=== PATIENT | female | born 1960 | race African-American/Black ===

== ENCOUNTER 2022-12-10 23:15 | Inpatient (IN) | payer MEDICAID ==
[~2022-12-10] VITALS: Ht 167.6 cm; Wt 48.8 kg
[~2022-12-10 23:15] MED LIST: ALEN70TA79 PO; AMLO10TA80 PO; ATOR40TA70 PO; CLIN-194 MT; LISI20TA31 PO; SULF1TAB48 MT
[2022-12-10 23:18] VITALS: O2SAT 99
[2022-12-10] MEDS ORDERED: ONDANSETRON HCL 4MG/2ML INJ IV STA (23:18)
[2022-12-10] MEDS ORDERED: SODIUM CHLORIDE 0.9% 500 ML IV ONE (23:30)
[2022-12-10] MEDS ORDERED: ACETAMINOPHEN 325MG TABLET PO ONE (23:30)
[2022-12-10 23:38] LABS: BASOPHILS % 0.2 % (0.0-2.0); EOSINOPHILS % 1.2 % (0.0-5.0); HEMATOCRIT. 35.3 % (36.0-48.0); HEMOGLOBIN. 12.1 g/dL (12.0-16.0); LYMPHOCYTES % 16.6 % (20.0-50.0); MEAN CORPUSCULAR HGB CONC 34.3 g/dL (31.0-37.0); MEAN PLATELET VOLUME 7.6 fl (7.4-10.4); MONOCYTES % 14.1 % (2.0-8.0); NEUTROPHILS % 67.9 % (40.0-76.0); PLATELET 284 x1000/uL (130-400); RED BLOOD CELL COUNT 3.56 mill/uL (4.2-5.4); RED CELL DISTRIBUTION WIDTH 14.2 % (11.6-14.6); WHITE BLOOD COUNT 4.3 x1000/uL (4.5-11.0)
[2022-12-10 23:47] LABS: CHLORIDE 101 mEq/L (98-107); INDEX HEMOLYSI 1 (1-3); INDEX ICTERIC 1 (1-4); INDEX LIPEMIC 1 (1-3); POTASSIUM 2.9 mEq/L (3.5-5.1); SODIUM 133 mEq/L (136-145)
[2022-12-10 23:56] LABS: ALANINE AMINOTRANSFERASE 21 IU/L (13-61); ALBUMIN 2.7 g/dL (3.4-5.0); ASPARTATE AMINOTRANSFERASE 20 IU/L (15-37); BILIRUBIN TOTAL 0.5 mg/dL (0.1-1.0); CALCIUM 8.7 mg/dL (8.5-10.1); CARBON DIOXIDE 29 mEq/L (21-32); CREATININE 1.4 mg/dL (0.6-1.3); ETHANOL BLOOD < 10 mg/dL (<10); GLUCOSE 100 mg/dL (70-105); PROTEIN TOTAL 7.1 g/dL (6.0-8.3); UREA NITROGEN BLOOD 50 mg/dL (7-21)
[2022-12-10 23:57] LABS: PROTHROMBIN TIME 10.5 sec (9.6-11.0)
[2022-12-11 00:50] LABS: CLARITY URINE CLEAR (CLEAR); COLOR URINE YELLOW (YELLOW); GLUCOSE URINE NEGATIVE (NEGATIVE); KETONES URINE NEGATIVE (NEGATIVE); LEUKOCYTE ESTERASE URINE 3+ (NEGATIVE); NITRITE URINE NEGATIVE (NEGATIVE); OCCULT BLOOD URINE NEGATIVE (NEGATIVE); PH URINE 6.5 (4.5-8.0); PROTEIN URINE TRACE (NEGATIVE); SPECIFIC GRAVITY URINE 1.014 (1.005-1.030); UROBILINOGEN URINE 0.2 E.U./dL (0.2-1.0)
[2022-12-11] MEDS ORDERED: KCL 20MEQ/100ML PREMIX 100 ML IV NR ×3 (01:00→07:45)
[2022-12-11 01:01] LABS: *AMPHETAMINES SCREEN URINE NEGATIVE (NEGATIVE); *BARBITURATES SCREEN URINE NEGATIVE (NEGATIVE); *BENZODIAZEPINES SCREEN URINE NEGATIVE (NEGATIVE); *COCAINE SCREEN URINE PRESUMTIVE POSITIVE (NEGATIVE); CANNABINOID URINE SCREEN NEGATIVE (NEGATIVE); ECSTASY MDMA SCREEN URINE NEGATIVE (NEGATIVE); OPIATES URINE SCREEN NEGATIVE (NEGATIVE); PHENCYCLIDINE URINE SCREEN NEGATIVE (NEGATIVE)
[2022-12-11 03:02] LABS: SQUAMOUS EPITHELIAL CELL URINE FEW /lpf (RARE/1+)
[2022-12-11 03:07] LABS: RBC URINE 0-2 /hpf (0-2)
[2022-12-11 03:13] LABS: BACTERIA URINE 1+
[2022-12-11] MEDS ORDERED: CEFTRIAXONE 1GM PREMIX 50 ML IV NR (03:45)
[2022-12-11] MEDS ORDERED: IOHEXOL-300 100 ML BOTTLE ONE (03:50)
[2022-12-11] MEDS ORDERED: METRONIDAZOLE 500 MG PREMIX 100 ML IV NR (04:15)
[2022-12-11] MEDS ORDERED: ONDANSETRON HCL 4MG/2ML INJ IV PRN (04:45)
[2022-12-11] MEDS ORDERED: LORAZEPAM 2MG/ML CPJ IV PRN (04:45)
[2022-12-11] MEDS ORDERED: ZOLPIDEM TARTRATE 5MG TABLET PO PRN (04:45)
[2022-12-11] MEDS ORDERED: ACETAMINOPHEN 325MG TABLET PO PRN ×2 (04:45)
[2022-12-11] MEDS ORDERED: MAGNESIUM/ALUMINUM HYDROXIDE/SIMETHICONE 30ML UDC PO PRN (04:45)
[2022-12-11] MEDS ORDERED: DIPHENHYDRAMINE 50MG/ML VIAL IV PRN (04:45)
[2022-12-11 06:20] LABS: CHLORIDE 103 mEq/L (98-107); INDEX HEMOLYSI 1 (1-3); INDEX ICTERIC 1 (1-4); INDEX LIPEMIC 1 (1-3); POTASSIUM 3.1 mEq/L (3.5-5.1); SODIUM 134 mEq/L (136-145)
[2022-12-11 06:23] LABS: CALCIUM 8.1 mg/dL (8.5-10.1)
[2022-12-11 06:38] LABS: CARBON DIOXIDE 26 mEq/L (21-32); CREATINE KINASE 57 IU/L (26-192); CREATININE 1.2 mg/dL (0.6-1.3); GLUCOSE 121 mg/dL (70-105); PHOSPHORUS 1.8 mg/dL (2.5-4.9); T4 FREE 1.31 ng/dL (0.76-1.46); THYROID STIMULATING HORMONE 0.34 uIU/mL (0.36-3.74); UREA NITROGEN BLOOD 40 mg/dL (7-21)
[2022-12-11 06:45] LABS: TROPONIN I HIGH SENSITIVITY 120 ng/L (<54)
[2022-12-11] MEDS: DEXT 5%/0.9% NACL 1,000 ML IV SCH ×3 (07:39→20:56)
[2022-12-11] MEDS ORDERED: POTASSIUM PHOS,M-BASIC-D-BASIC 30 MMOL in SODIUM CHLORIDE 0.9% 500 ML IV NR (08:00)
[2022-12-11] MEDS ORDERED: PANTOPRAZOLE SODIUM 40 MG/VIAL IV SCH (09:00)
[2022-12-11] MEDS ORDERED: NICOTINE 7MG PATCH TD SCH (09:00)
[2022-12-11 09:36] VITALS: BP 134/71; PULSE 57; RESP 16; TEMP 98.8
[2022-12-11] MEDS ORDERED: ASPIRIN 81MG EC TABLET PO SCH (10:00)
[2022-12-11] MEDS ORDERED: KETOROLAC 30MG/ML VIAL IV PRN (11:00)
[2022-12-11 11:58] VITALS: BP 118/61; PULSE 62; RESP 18; TEMP 98.6
[2022-12-11] MEDS: METRONIDAZOLE 500 MG PREMIX 100 ML IV SCH ×2 (15:15→21:32)
[2022-12-11 16:14] VITALS: BP 138/67; PULSE 59; RESP 20; TEMP 98.9
[2022-12-11 20:00] VITALS: BP 146/55; PULSE 60; RESP 20; TEMP 97.7
[2022-12-11 22:13] LABS: POTASSIUM 2.9 mEq/L (3.5-5.1)
[2022-12-11 22:32] LABS: CREATINE KINASE MB FRACTION 1.9 ng/mL (0.5-3.6)
[2022-12-11] MEDS ORDERED: GABA-529 PO (23:44)
[2022-12-11] MEDS ORDERED: MYCO500T PO (23:44)
[2022-12-11] MEDS ORDERED: CHOL-36 PO (23:44)
[2022-12-11] MEDS ORDERED: POTASSIUM CHLORIDE 20MEQ TABLET SR PO NR (23:45)
[2022-12-12] VITALS: BP 119/67; PULSE 60; RESP 18; TEMP 98
[2022-12-12 04:00] VITALS: BP 137/61; PULSE 65; RESP 20; TEMP 97.7
[2022-12-12] MEDS: METRONIDAZOLE 500 MG PREMIX 100 ML IV SCH (05:51)
[2022-12-12] MEDS ORDERED: CEFTRIAXONE 1,000 MG in DEXTROSE 5% WATER 50 ML IV SCH (06:00)
[2022-12-12 08:00] VITALS: BP 138/93; PULSE 75; RESP 20; TEMP 98.1
== END 2022-12-12 11:17 | disposition left against medical advice (07) | DRG 248 ==
LOC: ER 23:15 → EDBEDREQ 12-11 03:12 → 7WST 12-11 04:10 → EDBEDREQ 12-11 04:15
PROVIDERS: ADMIT Internal Medicine; ATTEND Internal Medicine
DX: A04.72 Enterocolitis due to Clostridium difficile, not specified as recurrent (principal); E44.0 Moderate protein-calorie malnutrition; N17.9 Acute kidney failure, unspecified; E87.1 Hypo-osmolality and hyponatremia; E88.09 Other disorders of plasma-protein metabolism, not elsewhere classified; E87.6 Hypokalemia; E86.0 Dehydration; D72.819 Decreased white blood cell count, unspecified; Z53.29 Procedure and treatment not carried out because of patient's decision for other reasons; Z68.1 Body mass index [BMI] 19.9 or less, adult; E78.00 Pure hypercholesterolemia, unspecified; I10 Essential (primary) hypertension; J45.909 Unspecified asthma, uncomplicated; F17.210 Nicotine dependence, cigarettes, uncomplicated; Z79.899 Other long term (current) drug therapy; R82.71 Bacteriuria
CPT/HCPCS: 36415; 74177; 80048; 80053; 80305; 80320; 81003; 82550; 82553; 83605; 83735; 84100; 84132; 84439; 84443; 84484; 85025; 93005; 99285; C9113; J0696; J2405; J3480; J3490; J7040; J7060; Q9967; G0480

== ENCOUNTER 2024-07-25 21:27 | Inpatient (IN) | payer MEDICARE, MEDICAID ==
[~2024-07-25] VITALS: Ht 154.9 cm; Wt 52.2 kg
[~2024-07-25 21:27] MED LIST changes: +ALBU18HF2 IH; -ALEN70TA79 PO; -AMLO10TA80 PO; +ASPI-1497 PO; +CEPH500T MT; +CHOL-36 PO; -CLIN-194 MT; +EMPA10TA PO; +FURO-151 MT; +FURO80TA87 MT; +GABA-529 PO; +HYDR50TA40 PO; -LISI20TA31 PO; +LOSA100T33 PO; +METH4TAB95 MT; +P20 MT; -SULF1TAB48 MT; +T3 PO
[2024-07-25 22:27] LABS: BASOPHILS % 1.1 % (0.0-2.0); EOSINOPHILS % 3.3 % (0.0-5.0); HEMOGLOBIN. 9.3 g/dL (12.0-16.0); LYMPHOCYTES % 14.4 % (20.0-50.0); MEAN CORPUSCULAR HEMOGLOBIN 30.5 pg (28.0-32.0); MEAN CORPUSCULAR HGB CONC 31.9 g/dL (31.0-37.0); MEAN CORPUSCULAR VOLUME 95.8 fL (81.0-99.0); MEAN PLATELET VOLUME 7.1 fl (7.4-10.4); MONOCYTES % 6.8 % (2.0-8.0); NEUTROPHILS % 74.4 % (40.0-76.0); PLATELET 499 x1000/uL (130-400); RED BLOOD CELL COUNT 3.03 mill/uL (4.2-5.4); RED CELL DISTRIBUTION WIDTH 20.9 % (11.6-14.6); WHITE BLOOD COUNT 6.8 x1000/uL (4.5-11.0)
[2024-07-25 22:35] LABS: PROTHROMBIN TIME 11.2 sec (9.6-11.0)
[2024-07-25 22:40] LABS: CHLORIDE 107 mEq/L (98-107); POTASSIUM 4.5 mEq/L (3.5-5.1); SODIUM 142 mEq/L (136-145)
[2024-07-25 22:41] LABS: CALCIUM 8.5 mg/dL (8.7-10.4); CARBON DIOXIDE 25 mEq/L (21-32)
[2024-07-25] MEDS: FUROSEMIDE 40MG/4ML VIAL IVP ONE (22:44)
[2024-07-25] MEDS: ASPIRIN 81MG TABLET PO ONE (22:44)
[2024-07-25 22:46] LABS: CREATININE 1.6 mg/dL (0.6-1.0); GLUCOSE 111 mg/dL (70-105); UREA NITROGEN BLOOD 42 mg/dL (9-23)
[2024-07-25 22:53] LABS: TROPONIN I HIGH SENSITIVITY 368 ng/L (3.0-34)
[2024-07-26] VITALS (7 sets, daily range): BP systolic 107–178; BP diastolic 72–96; PULSE 66–81; RESP 18–20; TEMP 36.1–36.7; O2SAT 96–99
[2024-07-26] MEDS ORDERED: DIPHENHYDRAMINE 50MG/ML VIAL IV PRN (02:00)
[2024-07-26] MEDS ORDERED: ZOLPIDEM TARTRATE 5MG TABLET PO PRN (02:00)
[2024-07-26] MEDS ORDERED: MAGNESIUM/ALUMINUM HYDROXIDE/SIMETHICONE 30ML UDC PO PRN (02:00)
[2024-07-26] MEDS ORDERED: HYDRALAZINE 20MG/ML VIAL IV PRN (02:00)
[2024-07-26] MEDS ORDERED: ONDANSETRON HCL 4MG/2ML INJ IV PRN (02:00)
[2024-07-26] MEDS ORDERED: ACETAMINOPHEN 325MG TABLET PO PRN (02:00)
[2024-07-26] MEDS ORDERED: CLONIDINE 0.1MG TABLET PO PRN (02:00)
[2024-07-26] MEDS ORDERED: GUAIFENESIN 200MG/10ML SUGAR FREE UDC PO PRN (02:00)
[2024-07-26] MEDS ORDERED: NALOXONE HCL 0.4MG/ML VIAL IV PRN (02:15)
[2024-07-26] MEDS ORDERED: HYDROCODONE/ACETAMINOPHEN 5/325MG TABLET PO PRN (02:15)
[2024-07-26] MEDS: GABAPENTIN 100MG CAPSULE PO SCH (06:00)
[2024-07-26] MEDS: SODIUM CHLORIDE 0.9% 3ML FLUSH IVF SCH (06:36)
[2024-07-26] MEDS: NICOTINE 21MG PATCH TD SCH (09:42)
[2024-07-26] MEDS: DOCUSATE SODIUM 100MG CAPSULE PO SCH (09:43)
[2024-07-26] MEDS: FUROSEMIDE 100MG/10ML VIAL IVP SCH (09:43)
[2024-07-26] MEDS: CARVEDILOL 12.5MG TABLET PO SCH (09:43)
[2024-07-26] MEDS: EMPAGLIFLOZIN 10MG TABLET PO SCH (09:44)
[2024-07-26] MEDS: LOSARTAN 100 MG TABLET PO SCH (09:44)
[2024-07-26] MEDS: SPIRONOLACTONE 25MG TABLET PO SCH (09:44)
[2024-07-26] MEDS: FAMOTIDINE 20MG TABLET PO SCH (09:45)
[2024-07-26] MEDS: ENOXAPARIN 40MG/0.4ML SYR SUBCUT SCH (09:45)
[2024-07-26] MEDS: ATORVASTATIN CALCIUM 40MG TABLET PO SCH (21:00)
[2024-07-26] MEDS: DICLOFENAC SODIUM 1% GEL 50GM TOP SCH (21:00)
[2024-07-26] MEDS: HYDROCODONE/ACETAMINOPHEN 5/325MG TABLET PO PRN (22:35)
[2024-07-27] VITALS (9 sets, daily range): BP systolic 110–154; BP diastolic 56–73; PULSE 61–89; RESP 16–20; TEMP 36.1–37.7; O2SAT 94–99
[2024-07-27] MEDS: BUDESONIDE 0.5MG/2ML NEB HHN SCH (10:17)
[2024-07-27] MEDS: LACTULOSE 20G/30ML UDC PO NR (15:16)
[2024-07-27] MEDS: IPRATROPIUM/ALBUTEROL 0.5-3(2.5)MG/3ML NEB HHN PRN (17:35)
[2024-07-27] MEDS: NA PHOS,M-B/NA PHOS,DI-BA ENEMA 118ML PR NR (18:43)
[2024-07-28] VITALS (7 sets, daily range): BP systolic 102–140; BP diastolic 58–85; PULSE 68–96; RESP 18–19; TEMP 36.4–36.6; O2SAT 98–100
[2024-07-28] MEDS: ACETAMINOPHEN 325MG TABLET PO PRN (06:31)
[2024-07-28 08:10] LABS: CHLORIDE 100 mEq/L (98-107); SODIUM 136 mEq/L (136-145)
[2024-07-28 08:11] LABS: CALCIUM 8.4 mg/dL (8.7-10.4); CARBON DIOXIDE 25 mEq/L (21-32)
[2024-07-28 08:16] LABS: CREATININE 1.6 mg/dL (0.6-1.0); GLUCOSE 160 mg/dL (70-105)
[2024-07-28 08:17] LABS: UREA NITROGEN BLOOD 36 mg/dL (9-23)
[2024-07-28 08:18] LABS: PHOSPHORUS 3.8 mg/dL (2.5-4.9)
[2024-07-28 12:33] LABS: CLARITY URINE CLEAR (CLEAR); COLOR URINE YELLOW (YELLOW); GLUCOSE URINE TRACE (NEGATIVE); KETONES URINE NEGATIVE (NEGATIVE); LEUKOCYTE ESTERASE URINE NEGATIVE (NEGATIVE); NITRITE URINE NEGATIVE (NEGATIVE); OCCULT BLOOD URINE NEGATIVE (NEGATIVE); PROTEIN URINE NEGATIVE (NEGATIVE); SPECIFIC GRAVITY URINE 1.007 (1.005-1.030); UROBILINOGEN URINE 0.2 E.U./dL (0.2-1.0)
[2024-07-28 12:55] LABS: *AMPHETAMINES SCREEN URINE NEGATIVE (NEGATIVE)
[2024-07-28 12:56] LABS: *BARBITURATES SCREEN URINE NEGATIVE (NEGATIVE); *BENZODIAZEPINES SCREEN URINE NEGATIVE (NEGATIVE); *COCAINE SCREEN URINE PRESUMPTIVE POSITIVE (NEGATIVE); METHADONE URINE SCREEN NEGATIVE (NEGATIVE); OPIATES URINE SCREEN NEGATIVE (NEGATIVE); PHENCYCLIDINE URINE SCREEN NEGATIVE (NEGATIVE)
[2024-07-28 12:57] LABS: CANNABINOID URINE SCREEN NEGATIVE (NEGATIVE); ECSTASY MDMA SCREEN URINE NEGATIVE (NEGATIVE)
[2024-07-28 13:02] LABS: SQUAMOUS EPITHELIAL CELL URINE 1+ /lpf (RARE/1+)
[2024-07-28 13:04] LABS: BACTERIA URINE TRACE; WBC URINE 0-2 /hpf (0-2)
[2024-07-28 13:05] LABS: RBC URINE NONE SEEN /hpf (0-2)
== END 2024-07-28 19:11 | disposition home or self-care (01) | DRG 291 ==
LOC: ER 21:27 → 8WST 22:56 → ENRESERV 23:25
PROVIDERS: ADMIT Internal Medicine; ATTEND Internal Medicine
DX: I13.0 Hypertensive heart and chronic kidney disease with heart failure and stage 1 through stage 4 chronic kidney disease, or unspecified chronic kidney disease (principal); I50.23 Acute on chronic systolic (congestive) heart failure; J44.89 Other specified chronic obstructive pulmonary disease; N18.9 Chronic kidney disease, unspecified; F17.200 Nicotine dependence, unspecified, uncomplicated; E78.5 Hyperlipidemia, unspecified; F14.10 Cocaine abuse, uncomplicated; Z90.711 Acquired absence of uterus with remaining cervical stump
CPT/HCPCS: 36415; 71045; 80048; 80305; 81003; 83735; 84100; 84484; 85025; 93005; 94070; 94640; 96374; 99291; J1650; J1940; J7626

== ENCOUNTER 2024-10-02 06:39 | Inpatient (IN) | payer MEDICARE, MEDICAID ==
[~2024-10-02] VITALS: Ht 160 cm; Wt 50.1 kg
[2024-10-02 06:41] VITALS: O2SAT 94
[2024-10-02] MEDS: HYDROCODONE/ACETAMINOPHEN 5/325MG TABLET PO ONE (07:18)
[2024-10-02 07:32] LABS: BASOPHILS % 2.0 % (0.0-2.0); EOSINOPHILS % 3.3 % (0.0-5.0); HEMATOCRIT. 30.8 % (36.0-48.0); HEMOGLOBIN. 10.0 g/dL (12.0-16.0); LYMPHOCYTES % 29.1 % (20.0-50.0); MEAN PLATELET VOLUME 7.6 fl (7.4-10.4); MONOCYTES % 9.6 % (2.0-8.0); NEUTROPHILS % 56.0 % (40.0-76.0); PLATELET 395 x1000/uL (130-400); RED BLOOD CELL COUNT 3.31 mill/uL (4.2-5.4); RED CELL DISTRIBUTION WIDTH 21.4 % (11.6-14.6)
[2024-10-02] MEDS ORDERED: ENALAPRIL 2.5MG/2ML VIAL 2ML IV ONE (07:45)
[2024-10-02 07:53] LABS: CREATININE 1.5 mg/dL (0.6-1.0); UREA NITROGEN BLOOD 41 mg/dL (9-23)
[2024-10-02 08:00] LABS: TROPONIN I HIGH SENSITIVITY 690 ng/L (3.0-34)
[2024-10-02] MEDS ORDERED: IPRATROPIUM/ALBUTEROL 0.5-3(2.5)MG/3ML NEB HHN PRN (08:15)
[2024-10-02] MEDS ORDERED: DOCUSATE SODIUM 100MG CAPSULE PO PRN (08:15)
[2024-10-02] MEDS ORDERED: ACETAMINOPHEN 325MG TABLET PO PRN (08:15)
[2024-10-02] MEDS ORDERED: ONDANSETRON HCL 4MG/2ML INJ IV PRN (08:15)
[2024-10-02] MEDS ORDERED: CLONIDINE 0.1MG TABLET PO PRN (08:15)
[2024-10-02] MEDS ORDERED: ALBUTEROL (0.5%) 2.5MG/0.5ML NEB HHN SCH (08:30)
[2024-10-02] MEDS ORDERED: ATORVASTATIN CALCIUM 40MG TABLET PO SCH ×2 (08:30→10:15)
[2024-10-02] MEDS: FUROSEMIDE 40MG/4ML VIAL IVP SCH (09:30)
[2024-10-02 09:35] LABS: TROPONIN I HIGH SENSITIVITY 683 ng/L (3.0-34)
[2024-10-02] MEDS: ASPIRIN 325MG EC TABLET PO SCH (09:42)
[2024-10-02] MEDS: ENOXAPARIN 60MG/0.6ML SYR SUBCUT ONE (09:42)
[2024-10-02] MEDS: FUROSEMIDE 40MG/4ML VIAL IVP ONE (09:42)
[2024-10-02] MEDS: PANTOPRAZOLE SODIUM 40 MG/VIAL IV SCH (09:42)
[2024-10-02] MEDS: CALCIUM CHLORIDE 1GM/10ML SYR IV SCH (09:43)
[2024-10-02] MEDS: CLOPIDOGREL 75MG TABLET PO SCH (09:43)
[2024-10-02] MEDS: SODIUM POLYSTYRENE SULFONATE 15 G/60 ML BOT PO SCH (09:43)
[2024-10-02] MEDS: ENALAPRIL 1.25MG/ML VIAL 1ML IV NR (09:57)
[2024-10-02] MEDS: ENOXAPARIN 60MG/0.6ML SYR SUBCUT SCH (09:58)
[2024-10-02 10:23] LABS: CREATINE KINASE MB FRACTION 1.4 ng/mL (0.5-3.6)
[2024-10-02 13:22] VITALS: BP 160/69; PULSE 63; RESP 18; TEMP 36.5; O2SAT 94
[2024-10-02] MEDS: ISOSORBIDE MONONITRATE 30MG TABLET SR 24HR PO SCH (13:41)
[2024-10-02] MEDS: HYDRALAZINE HCL 50MG TABLET PO SCH ×2 (13:41→21:24)
[2024-10-02 16:00] VITALS: BP 145/72; PULSE 71; RESP 18; TEMP 36.4; O2SAT 100
[2024-10-02 16:45] VITALS: BP 160/69; PULSE 63; RESP 18; TEMP 36.5292
[2024-10-02] MEDS: ACETAMINOPHEN 325MG TABLET PO PRN (17:12)
[2024-10-02] MEDS ORDERED: FUROSEMIDE 100MG/10ML VIAL IVP SCH (17:15)
[2024-10-02 20:00] VITALS: BP 135/56; PULSE 67; RESP 18; TEMP 36.7; O2SAT 97
[2024-10-02 21:43] LABS: INR 1.1
[2024-10-02 21:53] LABS: CREATINE KINASE MB FRACTION 1.5 ng/mL (0.5-3.6)
[2024-10-02] MEDS ORDERED: SPIR25TA6 PO (22:02)
[2024-10-02] MEDS ORDERED: MULT-1279 PO (22:02)
[2024-10-02 22:15] LABS: TROPONIN I HIGH SENSITIVITY 673.0 ng/L (3.0-34)
[2024-10-02] MEDS ORDERED: KETOROLAC 30MG/ML VIAL IV PRN (22:45)
[2024-10-02] MEDS ORDERED: CARV25TA47 PO (23:38)
[2024-10-02] MEDS: ATORVASTATIN CALCIUM 40MG TABLET PO NR (23:54)
[2024-10-03] VITALS: BP 148/59; PULSE 63; RESP 18; TEMP 36.6; O2SAT 97
[2024-10-03 04:00] VITALS: BP 125/70; PULSE 80; RESP 18; TEMP 36.7; O2SAT 97
[2024-10-03] MEDS: KETOROLAC 15MG/ML VIAL IV PRN (05:48)
[2024-10-03 08:00] VITALS: BP 140/64; PULSE 63; RESP 18; TEMP 36.7; O2SAT 97
[2024-10-03] MEDS: ASPIRIN 81MG TABLET PO SCH (08:48)
[2024-10-03] MEDS: ENOXAPARIN 60MG/0.6ML SYR SUBCUT SCH (08:49)
[2024-10-03 12:00] VITALS: BP 160/63; PULSE 67; RESP 18; TEMP 36.3; O2SAT 97
[2024-10-03 13:42] LABS: BASOPHILS % 1.2 % (0.0-2.0); EOSINOPHILS % 3.2 % (0.0-5.0); HEMATOCRIT. 32.8 % (36.0-48.0); HEMOGLOBIN. 10.3 g/dL (12.0-16.0); LYMPHOCYTES % 26.6 % (20.0-50.0); MEAN PLATELET VOLUME 7.3 fl (7.4-10.4); MONOCYTES % 8.7 % (2.0-8.0); NEUTROPHILS % 60.3 % (40.0-76.0); PLATELET 400 x1000/uL (130-400); RED BLOOD CELL COUNT 3.43 mill/uL (4.2-5.4); RED CELL DISTRIBUTION WIDTH 21.9 % (11.6-14.6)
[2024-10-03 13:59] LABS: CREATININE 1.6 mg/dL (0.6-1.0); UREA NITROGEN BLOOD 34.0 mg/dL (9-23)
[2024-10-03 14:39] LABS: INR 1.1
[2024-10-03 16:00] VITALS: BP 134/52; PULSE 74; RESP 18; TEMP 36.5; O2SAT 97
[2024-10-03] MEDS ORDERED: ENOXAPARIN 40MG/0.4ML SYR SUBCUT SCH (17:00)
[2024-10-03] MEDS: DICLOFENAC SODIUM 1% GEL 50GM TOP SCH (17:08)
[2024-10-03] MEDS: ATORVASTATIN CALCIUM 40MG TABLET PO SCH (20:34)
[2024-10-04] VITALS: BP 156/61; PULSE 74; RESP 20; TEMP 37.1; O2SAT 98
[2024-10-04 08:00] VITALS: BP 108/57; PULSE 67; RESP 20; TEMP 36.7; O2SAT 100
[2024-10-04] MEDS: ENOXAPARIN 30MG/0.3ML SYR SUBCUT SCH (09:55)
[2024-10-04] MEDS: FUROSEMIDE 20MG TABLET PO NR (09:59)
[2024-10-04 12:00] VITALS: BP 151/68; PULSE 70; RESP 18; TEMP 36.6; O2SAT 99
[2024-10-04 16:00] VITALS: BP 142/73; PULSE 74; RESP 18; TEMP 36.7; O2SAT 100
[2024-10-04 16:53] LABS: BASOPHILS % 0.6 % (0.0-2.0); EOSINOPHILS % 4.7 % (0.0-5.0); HEMATOCRIT. 32.1 % (36.0-48.0); HEMOGLOBIN. 10.5 g/dL (12.0-16.0); LYMPHOCYTES % 16.7 % (20.0-50.0); MEAN PLATELET VOLUME 7.5 fl (7.4-10.4); MONOCYTES % 10.6 % (2.0-8.0); NEUTROPHILS % 67.4 % (40.0-76.0); PLATELET 371 x1000/uL (130-400); RED BLOOD CELL COUNT 3.43 mill/uL (4.2-5.4); RED CELL DISTRIBUTION WIDTH 21.8 % (11.6-14.6)
[2024-10-04 17:07] LABS: CREATININE 1.7 mg/dL (0.6-1.0); UREA NITROGEN BLOOD 40 mg/dL (9-23)
[2024-10-04 17:09] LABS: PHOSPHORUS 4.4 mg/dL (2.5-4.9)
[2024-10-04 20:00] VITALS: BP 148/70; PULSE 75; RESP 19; TEMP 37.1; O2SAT 100
[2024-10-05] VITALS: BP 132/61; PULSE 70; RESP 19; TEMP 36.9; O2SAT 100
[2024-10-05 08:00] VITALS: BP 155/74; PULSE 68; RESP 20; TEMP 36.6; O2SAT 98
[2024-10-05] MEDS: PREDNISONE 10MG TABLET PO SCH (08:40)
[2024-10-05] MEDS: HYDROXYCHLOROQUINE SULFATE 200MG TABLET PO SCH (08:41)
[2024-10-05] MEDS: PREGABALIN 75MG CAPSULE PO SCH (08:41)
[2024-10-05 12:00] VITALS: BP 140/74; PULSE 88; RESP 18; TEMP 37.1; O2SAT 97
[2024-10-05 16:00] VITALS: BP 128/55; PULSE 80; RESP 20; TEMP 37.2; O2SAT 100
[2024-10-05] MEDS ORDERED: BISACODYL 10MG SUPP PR PRN (17:30)
[2024-10-05] MEDS: BISACODYL 5MG TABLET PO PRN (17:37)
[2024-10-05] MEDS ORDERED: SENNOSIDES/DOCUSATE SOD 8.6/50MG TABLET PO PRN (20:30)
[2024-10-05] MEDS: BUPROPION HCL 75MG TABLET PO SCH (21:29)
[2024-10-06] VITALS: BP 157/63; PULSE 76; RESP 20; TEMP 36.4
[2024-10-06 04:00] VITALS: BP 125/52; PULSE 68; RESP 20; TEMP 36.2
[2024-10-06 06:40] LABS: BASOPHILS % 0.4 % (0.0-2.0); EOSINOPHILS % 3.1 % (0.0-5.0); HEMATOCRIT. 29.4 % (36.0-48.0); HEMOGLOBIN. 9.7 g/dL (12.0-16.0); LYMPHOCYTES % 29.3 % (20.0-50.0); MEAN PLATELET VOLUME 7.5 fl (7.4-10.4); MONOCYTES % 12.7 % (2.0-8.0); NEUTROPHILS % 54.5 % (40.0-76.0); PLATELET 354 x1000/uL (130-400); RED BLOOD CELL COUNT 3.14 mill/uL (4.2-5.4); RED CELL DISTRIBUTION WIDTH 21.5 % (11.6-14.6)
[2024-10-06 07:02] LABS: CREATININE 1.8 mg/dL (0.6-1.0)
[2024-10-06 07:04] LABS: UREA NITROGEN BLOOD 49 mg/dL (9-23)
[2024-10-06 07:06] LABS: PHOSPHORUS 3.6 mg/dL (2.5-4.9)
[2024-10-06 12:00] VITALS: BP 145/103; PULSE 70; RESP 20; TEMP 36.4; O2SAT 97
[2024-10-06] MEDS ORDERED: BUPR75TA8 PO (12:28)
[2024-10-06] MEDS ORDERED: CLOP-31 PO (12:28)
[2024-10-06] MEDS ORDERED: PRED10TA PO (12:28)
[2024-10-06] MEDS ORDERED: PREG75CA PO (12:28)
[2024-10-06] MEDS ORDERED: HYDR200T35 PO (12:28)
[2024-10-06 20:00] VITALS: BP 142/62; PULSE 77; RESP 18; O2SAT 100
[2024-10-06] MEDS ORDERED: NON FORMULARY MED XX SCH (20:45)
[2024-10-06] MEDS: LIDOCAINE HCL 1% 10 MG/ML 10ML VIAL INJ SCH (21:29)
[2024-10-06] MEDS: METHYLPREDNISOLONE ACETATE 40MG/ML VIAL IM SCH (21:30)
[2024-10-07 04:00] VITALS: BP 129/54; PULSE 63; RESP 20; O2SAT 100
[2024-10-07 08:00] VITALS: BP 115/65; PULSE 72; RESP 18; TEMP 36.4; O2SAT 98
[2024-10-07 08:41] VITALS: PULSE 63
[2024-10-11] MEDS ORDERED: ACET-3292 PO (14:14)
== END 2024-10-07 12:40 | disposition home health service (06) | DRG 280 ==
LOC: ER 06:50 → 8WST 07:38 → EDBEDREQ 07:41 → EDBEDREQTM 07:41 → ENRESERV 11:09
PROVIDERS: ADMIT Internal Medicine; ATTEND Internal Medicine
PROC: 3E0U33Z Introduction of Anti-inflammatory into Joints, Percutaneous Approach (ICD-10-PCS; principal; 2024-10-07)
PROC: 3E0U33Z Introduction of Anti-inflammatory into Joints, Percutaneous Approach (ICD-10-PCS; 2024-10-07)
PROC: 3E0U3BZ Introduction of Anesthetic Agent into Joints, Percutaneous Approach (ICD-10-PCS; 2024-10-07)
PROC: 3E0U3BZ Introduction of Anesthetic Agent into Joints, Percutaneous Approach (ICD-10-PCS; 2024-10-07)
DX: I13.0 Hypertensive heart and chronic kidney disease with heart failure and stage 1 through stage 4 chronic kidney disease, or unspecified chronic kidney disease (principal); I50.43 Acute on chronic combined systolic (congestive) and diastolic (congestive) heart failure; I21.A1 Myocardial infarction type 2; J96.21 Acute and chronic respiratory failure with hypoxia; N17.9 Acute kidney failure, unspecified; M87.9 Osteonecrosis, unspecified; M17.0 Bilateral primary osteoarthritis of knee; E87.5 Hyperkalemia; N18.9 Chronic kidney disease, unspecified; D63.1 Anemia in chronic kidney disease; J44.89 Other specified chronic obstructive pulmonary disease; I16.0 Hypertensive urgency; E78.5 Hyperlipidemia, unspecified; M25.511 Pain in right shoulder; K59.00 Constipation, unspecified; M25.512 Pain in left shoulder; M79.7 Fibromyalgia; R32 Unspecified urinary incontinence; F14.10 Cocaine abuse, uncomplicated; Z74.09 Other reduced mobility; Z79.82 Long term (current) use of aspirin; Z82.49 Family history of ischemic heart disease and other diseases of the circulatory system; Z86.14 Personal history of Methicillin resistant Staphylococcus aureus infection; Z87.891 Personal history of nicotine dependence; Z90.711 Acquired absence of uterus with remaining cervical stump; Z99.81 Dependence on supplemental oxygen
CPT/HCPCS: 36415; 71045; 73560; 80048; 82550; 82553; 83735; 83880; 84100; 84132; 84484; 85025; 93005; 93306; 94640; 97162; 97166; 99291; J1030; J1650; J1885; J1938; J2003; J2470; J3490; J7512

== ENCOUNTER 2024-12-05 02:35 | Emergency (ER) | payer MEDICARE, MEDICAID ==
[~2024-12-05] VITALS: Ht 152.4 cm; Wt 69.0 kg
[~2024-12-05 02:35] MED LIST changes: +AMLO2.5T45 PO; +ASPI-1406 PO; +BUPR75TA94 PO; +CARV25TA47 PO; -CEPH500T MT; -CHOL-36 PO; +CLOP-31 PO; +FAMO20TA8 PO; -FURO-151 MT; -FURO80TA87 MT; -GABA-529 PO; +HYDR200T35 PO; +HYDR25TA78 PO; -HYDR50TA40 PO; +ISOS30TA91 PO; +LIDO-53 TP; -LOSA100T33 PO; -METH4TAB95 MT; +MULT-1279 PO; -P20 MT; -T3 PO; +TOPUD PO
[2024-12-05 02:38] VITALS: O2SAT 100
[2024-12-05] MEDS: ACETAMINOPHEN 325MG TABLET PO ONE (03:24)
[2024-12-05 06:58] VITALS: BP 169/94; PULSE 82; RESP 21; TEMP 36.8; O2SAT 100
== END 2024-12-05 08:07 | disposition home or self-care (01) ==
LOC: ER 02:35
DX: G89.29 Other chronic pain (principal); M54.50 Low back pain, unspecified; E11.9 Type 2 diabetes mellitus without complications; I11.0 Hypertensive heart disease with heart failure; I46.9 Cardiac arrest, cause unspecified; I50.9 Heart failure, unspecified; J44.89 Other specified chronic obstructive pulmonary disease; Z79.02 Long term (current) use of antithrombotics/antiplatelets; Z79.82 Long term (current) use of aspirin; Z79.84 Long term (current) use of oral hypoglycemic drugs; Z79.899 Other long term (current) drug therapy
CPT/HCPCS: 99285

== ENCOUNTER 2024-12-07 19:27 | Inpatient (IN) | payer MEDICARE, MEDICAID ==
[~2024-12-07] VITALS: Ht 152.4 cm; Wt 56.7 kg
[2024-12-07 20:52] LABS: INFLUENZA TYPE A Presumptive Negative (Pres. Neg.); INFLUENZA TYPE B Presumptive Negative (Pres. Neg.)
[2024-12-07 21:05] LABS: BG DEOXYHEMOGLOBIN 43.8 % (0.0-5.0)
[2024-12-07] MEDS: FUROSEMIDE 40MG/4ML VIAL IV ONE (21:10)
[2024-12-07] MEDS: MORPHINE SULFATE 4 MG/ML INJ (FOR IV/IM USE) IV ONE (21:12)
[2024-12-07 21:22] LABS: HEMATOCRIT. 30.2 % (36.0-48.0); HEMOGLOBIN. 9.5 g/dL (12.0-16.0); MEAN PLATELET VOLUME 7.6 fl (7.4-10.4); PLATELET 431 x1000/uL (130-400); RED BLOOD CELL COUNT 3.13 mill/uL (4.2-5.4); RED CELL DISTRIBUTION WIDTH 21.2 % (11.6-14.6)
[2024-12-07 21:42] LABS: EOSINOPHILS % MANUAL 1.0 % (0.0-5.0); LYMPHOCYTES % MANUAL 27.0 % (20.0-60.0); MONOCYTES % MANUAL 4.0 % (2.0-8.0); NEUTROPHILS % MANUAL 68.0 % (45.0-75.0); NUCLEATED RED BLOOD CELLS 1 /100 WBC; PLATELET ESTIMATE INCREASED
[2024-12-07] MEDS: HYDRALAZINE 20MG/ML VIAL IV ONE (22:03)
[2024-12-07] MEDS ORDERED: HYDRALAZINE 20MG/ML VIAL IV PRN (22:15)
[2024-12-07] MEDS ORDERED: DEXTROSE 50% WATER 50ML SYRINGE IV PRN (22:15)
[2024-12-07] MEDS ORDERED: IPRATROPIUM/ALBUTEROL 0.5-3(2.5)MG/3ML NEB HHN PRN (22:15)
[2024-12-07] MEDS ORDERED: ACETAMINOPHEN 325MG TABLET PO PRN (22:15)
[2024-12-07] MEDS ORDERED: CLONIDINE 0.1MG TABLET PO PRN (22:15)
[2024-12-07] MEDS: ONDANSETRON HCL 4MG/2ML INJ IV PRN (22:44)
[2024-12-07] MEDS: FUROSEMIDE 20MG/2ML VIAL IVP NR (23:35)
[2024-12-07] MEDS: AMLODIPINE 10MG TABLET PO NR (23:36)
[2024-12-08] VITALS: BP 183/93; PULSE 66; PULSE 87; RESP 17; RESP 18; TEMP 36.4; TEMP 36.4736; O2SAT 99
[2024-12-08] MEDS: ISOSORBIDE MONONITRATE 30MG TABLET SR 24HR PO SCH (02:07)
[2024-12-08] MEDS: HYDRALAZINE HCL 25MG TABLET PO SCH (05:24)
[2024-12-08] MEDS: BLOOD SUGAR DIAGNOSTIC STRIP TEST SCH (06:21)
[2024-12-08] MEDS: FERROUS SULFATE 325MG TABLET PO SCH (07:40)
[2024-12-08 08:00] VITALS: BP 129/65; PULSE 68; RESP 20; TEMP 36.6; O2SAT 95
[2024-12-08 08:16] LABS: HEMATOCRIT. 29.9 % (36.0-48.0); HEMOGLOBIN. 9.5 g/dL (12.0-16.0); MEAN PLATELET VOLUME 7.7 fl (7.4-10.4); PLATELET 419 x1000/uL (130-400); RED BLOOD CELL COUNT 3.16 mill/uL (4.2-5.4); RED CELL DISTRIBUTION WIDTH 20.8 % (11.6-14.6)
[2024-12-08 08:34] LABS: CREATININE 2.1 mg/dL (0.6-1.0); UREA NITROGEN BLOOD 53 mg/dL (9-23)
[2024-12-08 08:36] LABS: ASPARTATE AMINOTRANSFERASE 25 IU/L (<34); BILIRUBIN DIRECT 0.1 mg/dL (<=3.0); CREATINE KINASE MB FRACTION 5.4 ng/mL (0.5-3.6)
[2024-12-08 08:37] LABS: BILIRUBIN TOTAL 0.3 mg/dL (0.1-1.0); CREATININE 2.1 mg/dL (0.6-1.0); PROTEIN TOTAL 7.7 g/dL (6.0-8.3)
[2024-12-08 08:38] LABS: UREA NITROGEN BLOOD 53 mg/dL (9-23)
[2024-12-08 08:40] LABS: PHOSPHORUS 4.0 mg/dL (2.5-4.9)
[2024-12-08 08:41] LABS: T4 FREE 1.13 ng/dL (0.89-1.76)
[2024-12-08 08:58] LABS: TROPONIN I HIGH SENSITIVITY 1016 ng/L (3.0-34)
[2024-12-08] MEDS: FUROSEMIDE 40MG/4ML VIAL IVP SCH (09:00)
[2024-12-08] MEDS: PANTOPRAZOLE SODIUM 40 MG/VIAL IV SCH (09:35)
[2024-12-08] MEDS: EMPAGLIFLOZIN 10MG TABLET PO SCH (09:36)
[2024-12-08] MEDS: ATORVASTATIN CALCIUM 40MG TABLET PO SCH (09:36)
[2024-12-08] MEDS: ASPIRIN 81MG EC TABLET PO SCH (09:36)
[2024-12-08] MEDS: AMLODIPINE 10MG TABLET PO SCH (09:36)
[2024-12-08] MEDS: ENOXAPARIN 30MG/0.3ML SYR SUBCUT SCH (09:37)
[2024-12-08 10:39] LABS: BAND% 2.0 % (1.0-6.0); LYMPHOCYTES % MANUAL 24.0 % (20.0-60.0); MONOCYTES % MANUAL 3.0 % (2.0-8.0); NEUTROPHILS % MANUAL 71.0 % (45.0-75.0); NUCLEATED RED BLOOD CELLS 5 /100 WBC; PLATELET ESTIMATE SLIGHTLY INCREASED
[2024-12-08 16:00] VITALS: BP 143/68; PULSE 72; RESP 18; TEMP 36.5; O2SAT 100
[2024-12-08 21:00] VITALS: BP 158/67; PULSE 75; RESP 18; TEMP 36.8; O2SAT 94
[2024-12-08] MEDS: BUPROPION HCL 75MG TABLET PO SCH (21:55)
[2024-12-08 22:38] LABS: TROPONIN I HIGH SENSITIVITY 1328 ng/L (3.0-34)
[2024-12-09 01:05] VITALS: PULSE 75; RESP 18; O2SAT 96
[2024-12-09] MEDS: IPRATROPIUM/ALBUTEROL 0.5-3(2.5)MG/3ML NEB HHN SCH (01:05)
[2024-12-09 04:00] VITALS: BP 155/92; PULSE 79; RESP 20
[2024-12-09] MEDS: ACETAMINOPHEN 325MG TABLET PO PRN (06:25)
[2024-12-09 08:19] VITALS: PULSE 80; RESP 20; O2SAT 97
[2024-12-09] MEDS: BUDESONIDE 0.5MG/2ML NEB HHN SCH (08:19)
[2024-12-09 08:51] LABS: PLATELET 430 x1000/uL (130-400); RED BLOOD CELL COUNT 3.29 mill/uL (4.2-5.4); RED CELL DISTRIBUTION WIDTH 20.6 % (11.6-14.6)
[2024-12-09 09:06] LABS: CREATININE 2.0 mg/dL (0.6-1.0); UREA NITROGEN BLOOD 46 mg/dL (9-23)
[2024-12-09 09:08] LABS: PHOSPHORUS 2.9 mg/dL (2.5-4.9)
[2024-12-09 09:44] LABS: TROPONIN I HIGH SENSITIVITY 1260 ng/L (3.0-34)
[2024-12-09] MEDS ORDERED: NALOXONE HCL 0.4MG/ML VIAL IV PRN (10:15)
[2024-12-09] MEDS ORDERED: ISOS30TA91 PO (11:30)
[2024-12-09] MEDS ORDERED: LIDO-53 TP (11:30)
[2024-12-09] MEDS ORDERED: TOPUD PO (11:30)
[2024-12-09] MEDS ORDERED: FERR-63 PO (11:30)
[2024-12-09] MEDS ORDERED: ASPI-1497 PO (11:30)
[2024-12-09] MEDS ORDERED: AMLO10TA80 PO (11:30)
[2024-12-09] MEDS ORDERED: ATOR40TA70 PO (11:30)
[2024-12-09] MEDS ORDERED: HYDR25TA78 PO (11:30)
[2024-12-09] MEDS ORDERED: EMPA10TA PO (11:30)
[2024-12-09 11:36] VITALS: BP 120/90; PULSE 78; RESP 13; TEMP 97.8
[2024-12-09] MEDS: TRAMADOL 50MG TABLET PO PRN (11:53)
[2024-12-09] MEDS: NITROGLYCERIN OINT 1GM/INCH UDPKT TD SCH (14:54)
[2024-12-09 16:00] VITALS: BP 100/63; PULSE 80; RESP 17; TEMP 36.6; O2SAT 100
== END 2024-12-09 16:30 | disposition home or self-care (01) | DRG 291 ==
LOC: ER 19:27 → EDBEDREQ 21:25 → EDBEDREQTM 21:25 → ENRESERV 23:10 → 8WST 23:51 → 7EST 12-09 09:43
PROVIDERS: ADMIT Hospitalist; ATTEND Hospitalist
DX: I13.0 Hypertensive heart and chronic kidney disease with heart failure and stage 1 through stage 4 chronic kidney disease, or unspecified chronic kidney disease (principal); I50.43 Acute on chronic combined systolic (congestive) and diastolic (congestive) heart failure; J96.21 Acute and chronic respiratory failure with hypoxia; J44.1 Chronic obstructive pulmonary disease with (acute) exacerbation; N17.9 Acute kidney failure, unspecified; D50.9 Iron deficiency anemia, unspecified; I16.0 Hypertensive urgency; N18.32 Chronic kidney disease, stage 3b; I42.2 Other hypertrophic cardiomyopathy; F14.10 Cocaine abuse, uncomplicated; E11.22 Type 2 diabetes mellitus with diabetic chronic kidney disease; I35.1 Nonrheumatic aortic (valve) insufficiency; I42.0 Dilated cardiomyopathy; G89.29 Other chronic pain; Z20.822 Contact with and (suspected) exposure to COVID-19; F15.90 Other stimulant use, unspecified, uncomplicated; E78.5 Hyperlipidemia, unspecified; D75.839 Thrombocytosis, unspecified; Z99.81 Dependence on supplemental oxygen; Z79.899 Other long term (current) drug therapy; I25.2 Old myocardial infarction; Z91.148 Patient's other noncompliance with medication regimen for other reason; Z91.199 Patient's noncompliance with other medical treatment and regimen due to unspecified reason
CPT/HCPCS: 36415; 71045; 76770; 80048; 80053; 80076; 82375; 82550; 82553; 82803; 82962; 83036; 83735; 83880; 84100; 84439; 84443; 84484; 85025; 85027; 85379; 87426; 87804; 93005; 93970; 94070; 94640; 94760; 97162; 99285; A4606; J0360; J1650; J1938; J2270; J2405; J2470; J7626

== ENCOUNTER 2024-12-31 17:20 | Inpatient (IN) | payer MEDICARE, MEDICAID ==
[~2024-12-31] VITALS: Ht 152.4 cm; Wt 47.6 kg
[~2024-12-31 17:20] MED LIST changes: +AMLO10TA80 PO; -AMLO2.5T45 PO; -ASPI-1406 PO; +FERR-63 PO
[2024-12-31 17:21] VITALS: O2SAT 100
[2024-12-31] MEDS ORDERED: MORPHINE SULFATE 2 MG/ML INJ (NOT FOR IM USE) IV ONE (18:00)
[2024-12-31 18:04] LABS: HEMATOCRIT. 32.1 % (36.0-48.0); HEMOGLOBIN. 9.8 g/dL (12.0-16.0); MEAN PLATELET VOLUME 7.7 fl (7.4-10.4); PLATELET 294 x1000/uL (130-400); RED BLOOD CELL COUNT 3.32 mill/uL (4.2-5.4); RED CELL DISTRIBUTION WIDTH 21.4 % (11.6-14.6)
[2024-12-31] MEDS: FUROSEMIDE 40MG/4ML VIAL IV ONE (18:09)
[2024-12-31] MEDS: MORPHINE SULFATE 4 MG/ML INJ (FOR IV/IM USE) IV SCH (18:11)
[2024-12-31] MEDS: LABETALOL 5MG/ML 4ML INJ IV ONE (18:12)
[2024-12-31 18:14] LABS: INR 1.2
[2024-12-31] MEDS: NITROGLYCERIN OINT 1GM/INCH UDPKT TD ONE (18:14)
[2024-12-31 18:24] LABS: CREATININE 1.8 mg/dL (0.6-1.0); UREA NITROGEN BLOOD 56 mg/dL (9-23)
[2024-12-31 18:26] LABS: ASPARTATE AMINOTRANSFERASE 42 IU/L (<34); BILIRUBIN DIRECT 0.1 mg/dL (<=3.0); BILIRUBIN TOTAL 0.3 mg/dL (0.1-1.0)
[2024-12-31 18:27] LABS: PROTEIN TOTAL 7.4 g/dL (6.0-8.3)
[2024-12-31 18:34] LABS: EOSINOPHILS % MANUAL 3.0 % (0.0-5.0); LYMPHOCYTES % MANUAL 22.0 % (20.0-60.0); MONOCYTES % MANUAL 7.0 % (2.0-8.0); NEUTROPHILS % MANUAL 68.0 % (45.0-75.0); NUCLEATED RED BLOOD CELLS 1 /100 WBC
[2024-12-31 18:48] LABS: TROPONIN I HIGH SENSITIVITY 536 ng/L (3.0-34)
[2024-12-31 19:20] LABS: PLATELET ESTIMATE NORMAL
[2024-12-31] MEDS: LABETALOL 5MG/ML 4ML INJ IV SCH (20:23)
[2024-12-31] MEDS ORDERED: DIPHENHYDRAMINE 50MG/ML VIAL IV PRN (21:45)
[2024-12-31] MEDS ORDERED: ACETAMINOPHEN 325MG TABLET PO PRN (21:45)
[2024-12-31] MEDS ORDERED: LORAZEPAM 0.5MG TABLET PO PRN (21:45)
[2024-12-31] MEDS ORDERED: GUAIFENESIN 200MG/10ML SUGAR FREE UDC PO PRN (21:45)
[2024-12-31] MEDS ORDERED: DOCUSATE SODIUM 100MG CAPSULE PO PRN (21:45)
[2024-12-31] MEDS ORDERED: IPRATROPIUM/ALBUTEROL 0.5-3(2.5)MG/3ML NEB HHN PRN (22:00)
[2024-12-31 22:43] LABS: CLARITY URINE CLEAR (CLEAR); COLOR URINE YELLOW (YELLOW); GLUCOSE URINE TRACE (NEGATIVE); KETONES URINE NEGATIVE (NEGATIVE); LEUKOCYTE ESTERASE URINE NEGATIVE (NEGATIVE); NITRITE URINE NEGATIVE (NEGATIVE); OCCULT BLOOD URINE NEGATIVE (NEGATIVE); PH URINE 5.0 (4.5-8.0); PROTEIN URINE NEGATIVE (NEGATIVE); SPECIFIC GRAVITY URINE 1.010 (1.005-1.030); UROBILINOGEN URINE 0.2 E.U./dL (0.2-1.0)
[2024-12-31 22:51] LABS: *AMPHETAMINES SCREEN URINE NEGATIVE (NEGATIVE); *BARBITURATES SCREEN URINE NEGATIVE (NEGATIVE); *BENZODIAZEPINES SCREEN URINE NEGATIVE (NEGATIVE); *COCAINE SCREEN URINE PRESUMPTIVE POSITIVE (NEGATIVE)
[2024-12-31 22:52] LABS: CANNABINOID URINE SCREEN NEGATIVE (NEGATIVE); ECSTASY MDMA SCREEN URINE NEGATIVE (NEGATIVE); METHADONE URINE SCREEN NEGATIVE (NEGATIVE); OPIATES URINE SCREEN PRESUMPTIVE POSITIVE (NEGATIVE); PHENCYCLIDINE URINE SCREEN NEGATIVE (NEGATIVE)
[2024-12-31 22:58] LABS: BACTERIA URINE NONE SEEN; RBC URINE NONE SEEN /hpf (0-2); SQUAMOUS EPITHELIAL CELL URINE FEW /lpf (RARE/1+); WBC URINE NONE SEEN /hpf (0-2)
[2024-12-31 23:35] VITALS: BP 184/96; PULSE 58; RESP 18; TEMP 35.8064
[2025-01-01] VITALS: BP 184/96; PULSE 58; RESP 18; TEMP 35.8; O2SAT 98
[2025-01-01] MEDS: AMLODIPINE 10MG TABLET PO SCH (00:11)
[2025-01-01] MEDS: ACETAMINOPHEN 325MG TABLET PO PRN (00:37)
[2025-01-01 04:00] VITALS: BP 188/101; PULSE 67; RESP 17; TEMP 36.5; O2SAT 100
[2025-01-01] MEDS: FUROSEMIDE 100MG/10ML VIAL IVP SCH (06:40)
[2025-01-01] MEDS: FERROUS SULFATE 325MG TABLET PO SCH (06:41)
[2025-01-01] MEDS: HYDRALAZINE HCL 100MG TABLET PO SCH (06:41)
[2025-01-01] MEDS ORDERED: FUROSEMIDE 100MG/10ML VIAL IVP SCH (07:15)
[2025-01-01 08:00] VITALS: BP 123/78; PULSE 64; RESP 20; TEMP 36.4; O2SAT 100
[2025-01-01 08:08] LABS: BASOPHILS % 0.5 % (0.0-2.0); EOSINOPHILS % 1.7 % (0.0-5.0); HEMATOCRIT. 34.6 % (36.0-48.0); HEMOGLOBIN. 10.2 g/dL (12.0-16.0); LYMPHOCYTES % 25.7 % (20.0-50.0); MEAN PLATELET VOLUME 7.8 fl (7.4-10.4); MONOCYTES % 7.8 % (2.0-8.0); NEUTROPHILS % 64.3 % (40.0-76.0); PLATELET 287 x1000/uL (130-400); RED BLOOD CELL COUNT 3.45 mill/uL (4.2-5.4); RED CELL DISTRIBUTION WIDTH 21.2 % (11.6-14.6)
[2025-01-01 08:17] LABS: CREATINE KINASE MB FRACTION 5.0 ng/mL (0.5-3.6)
[2025-01-01 08:21] LABS: T4 FREE 1.11 ng/dL (0.89-1.76)
[2025-01-01 08:22] LABS: CREATININE 1.8 mg/dL (0.6-1.0); TRIGLYCERIDE 134 mg/dL (0-150); UREA NITROGEN BLOOD 59 mg/dL (9-23)
[2025-01-01 08:23] LABS: LDL CHOLESTEROL 60 mg/dL (5-100)
[2025-01-01 08:24] LABS: PHOSPHORUS 3.4 mg/dL (2.5-4.9)
[2025-01-01 08:25] LABS: TROPONIN I HIGH SENSITIVITY 522 ng/L (3.0-34)
[2025-01-01] MEDS: EMPAGLIFLOZIN 10MG TABLET PO SCH (09:20)
[2025-01-01] MEDS: CLOPIDOGREL 75MG TABLET PO SCH (09:20)
[2025-01-01] MEDS: ASPIRIN 81MG EC TABLET PO SCH (09:20)
[2025-01-01 12:00] VITALS: BP_SYST 131; BP_SYST 184; BP_DIAS 103; BP_DIAS 89; PULSE 45; RESP 15; RESP 17; TEMP 36.5; O2SAT 100
[2025-01-01 16:00] VITALS: BP 172/79; PULSE 80; RESP 16; TEMP 36.7; O2SAT 97
[2025-01-01] MEDS: ONDANSETRON HCL 4MG/2ML INJ IV PRN (18:12)
[2025-01-01] MEDS: IRON SUCROSE COMPLEX 100 MG/5 ML ML IV SCH (18:30)
[2025-01-01 20:00] VITALS: BP 162/78; PULSE 67; RESP 17; TEMP 36.5; O2SAT 98
[2025-01-01] MEDS: FAMOTIDINE 20MG TABLET PO SCH (21:34)
[2025-01-01] MEDS: ATORVASTATIN CALCIUM 40MG TABLET PO SCH (21:34)
[2025-01-01] MEDS: BUPROPION HCL 75MG TABLET PO SCH (21:34)
[2025-01-01 23:55] LABS: TROPONIN I HIGH SENSITIVITY 484 ng/L (3.0-34)
[2025-01-02 04:00] VITALS: BP 139/63; PULSE 70; RESP 16; TEMP 36.4; O2SAT 96
[2025-01-02 08:00] VITALS: BP 143/65; PULSE 69; RESP 15; TEMP 36.2; O2SAT 100
== END 2025-01-02 09:40 | disposition left against medical advice (07) | DRG 280 ==
LOC: ER 17:20 → 5WST 20:27 → ENRESERV 22:57
PROVIDERS: ADMIT Hospitalist; ATTEND Hospitalist
DX: I13.0 Hypertensive heart and chronic kidney disease with heart failure and stage 1 through stage 4 chronic kidney disease, or unspecified chronic kidney disease (principal); I50.23 Acute on chronic systolic (congestive) heart failure; I21.A1 Myocardial infarction type 2; N17.9 Acute kidney failure, unspecified; I16.0 Hypertensive urgency; D72.819 Decreased white blood cell count, unspecified; D50.9 Iron deficiency anemia, unspecified; Z53.29 Procedure and treatment not carried out because of patient's decision for other reasons; E11.22 Type 2 diabetes mellitus with diabetic chronic kidney disease; N18.32 Chronic kidney disease, stage 3b; E78.5 Hyperlipidemia, unspecified; J44.89 Other specified chronic obstructive pulmonary disease; F14.129 Cocaine abuse with intoxication, unspecified; F17.210 Nicotine dependence, cigarettes, uncomplicated; Z79.84 Long term (current) use of oral hypoglycemic drugs; Z90.711 Acquired absence of uterus with remaining cervical stump; Z99.81 Dependence on supplemental oxygen; Z79.899 Other long term (current) drug therapy; Z82.49 Family history of ischemic heart disease and other diseases of the circulatory system
CPT/HCPCS: 36415; 71045; 80048; 80061; 80076; 80305; 80320; 81003; 82140; 82550; 82553; 83605; 83735; 83880; 84100; 84145; 84439; 84443; 84484; 85025; 85379; 93005; 96374; 96375; 99291; A4606; J1938; J2270; J2405; J3490; G0480

== ENCOUNTER 2025-01-09 20:18 | Inpatient (IN) | payer MEDICARE, MEDICAID ==
[~2025-01-09] VITALS: Ht 156.2 cm; Wt 55.3 kg
[2025-01-09 23:21] LABS: BASOPHILS % 0.8 % (0.0-2.0); EOSINOPHILS % 1.8 % (0.0-5.0); HEMATOCRIT. 34.5 % (36.0-48.0); HEMOGLOBIN. 10.4 g/dL (12.0-16.0); LYMPHOCYTES % 17.0 % (20.0-50.0); MEAN PLATELET VOLUME 8.7 fl (7.4-10.4); MONOCYTES % 5.3 % (2.0-8.0); NEUTROPHILS % 75.1 % (40.0-76.0); PLATELET 314 x1000/uL (130-400); RED BLOOD CELL COUNT 3.49 mill/uL (4.2-5.4); RED CELL DISTRIBUTION WIDTH 21.5 % (11.6-14.6)
[2025-01-09 23:25] LABS: UREA NITROGEN BLOOD 58.0 mg/dL (9-23)
[2025-01-09 23:31] LABS: TROPONIN I HIGH SENSITIVITY 598 ng/L (3.0-34)
[2025-01-09 23:32] LABS: CREATININE 2.5 mg/dL (0.6-1.0)
[2025-01-10] MEDS: ONDANSETRON HCL 4MG/2ML INJ IV ONE (00:37)
[2025-01-10] MEDS: MORPHINE SULFATE 4 MG/ML INJ (FOR IV/IM USE) IV NR (00:39)
[2025-01-10] MEDS: MORPHINE SULFATE 2 MG/ML INJ (NOT FOR IM USE) IV ONE (00:41)
[2025-01-10] MEDS: DEXTROSE 50% WATER 50ML SYRINGE IV ONE (01:01)
[2025-01-10] MEDS: SODIUM BICARBONATE 8.4% 50MEQ/50ML SYR IV NR (01:01)
[2025-01-10] MEDS: DEXTROSE 50% WATER 50ML SYRINGE IV NR (01:09)
[2025-01-10] MEDS: SODIUM BICARBONATE 8.4% 50MEQ/50ML VIAL IV ONE (01:09)
[2025-01-10] MEDS: INSULIN REGULAR (HUMULIN R) 1000UNITS/10ML VIAL IV ONE (01:09)
[2025-01-10] MEDS: INSULIN REGULAR (HUMULIN R) 1000UNITS/10ML VIAL IV NR (01:10)
[2025-01-10 05:35] LABS: TROPONIN I HIGH SENSITIVITY 582 ng/L (3.0-34)
[2025-01-10] MEDS ORDERED: IPRATROPIUM/ALBUTEROL 0.5-3(2.5)MG/3ML NEB HHN PRN (08:15)
[2025-01-10] MEDS ORDERED: MAGNESIUM/ALUMINUM HYDROXIDE/SIMETHICONE 30ML UDC PO PRN (08:15)
[2025-01-10] MEDS ORDERED: DOCUSATE SODIUM 100MG CAPSULE PO PRN (08:15)
[2025-01-10] MEDS ORDERED: ONDANSETRON HCL 4MG/2ML INJ IV PRN (08:15)
[2025-01-10] MEDS ORDERED: GUAIFENESIN 200MG/10ML SUGAR FREE UDC PO PRN (08:15)
[2025-01-10] MEDS: INSULIN LISPRO 100 UNITS/ML SUBCUT SCH (08:20)
[2025-01-10 08:30] VITALS: BP 189/103; PULSE 92; RESP 20; TEMP 36.6; O2SAT 97
[2025-01-10] MEDS ORDERED: PANTOPRAZOLE SODIUM 40 MG/VIAL IV SCH (09:00)
[2025-01-10] MEDS: BLOOD SUGAR DIAGNOSTIC STRIP TEST SCH (09:40)
[2025-01-10] MEDS: ENOXAPARIN 30MG/0.3ML SYR SUBCUT SCH (10:03)
[2025-01-10] MEDS: CLOPIDOGREL 75MG TABLET PO SCH (10:04)
[2025-01-10] MEDS: ASPIRIN 81MG EC TABLET PO SCH (10:04)
[2025-01-10] MEDS: AMLODIPINE 10MG TABLET PO SCH (10:04)
[2025-01-10] MEDS: EMPAGLIFLOZIN 10MG TABLET PO SCH (10:04)
[2025-01-10] MEDS: ACETAMINOPHEN 650MG/20.3ML UDC GT PRN (10:04)
[2025-01-10] MEDS: FAMOTIDINE 20MG/2ML VIAL IV SCH (10:20)
[2025-01-10 11:19] VITALS: BP 175/112; PULSE 85; RESP 18; TEMP 36.5292
[2025-01-10 12:00] VITALS: BP 175/78; PULSE 67; RESP 20; TEMP 36.6; O2SAT 99
[2025-01-10] MEDS: HYDRALAZINE 20MG/ML VIAL IV PRN (12:39)
[2025-01-10] MEDS ORDERED: IPRATROPIUM/ALBUTEROL 0.5-3(2.5)MG/3ML NEB HHN NR (13:45)
[2025-01-10] MEDS ORDERED: HYDRALAZINE HCL 25MG TABLET PO SCH (14:00)
[2025-01-10] MEDS: HYDRALAZINE HCL 25MG TABLET PO SCH (14:40)
[2025-01-10] MEDS: INFLUENZA VACCINE 05/PF 0.5 ML SYRINGE IM ONE (15:30)
[2025-01-10] MEDS: SODIUM ZIRCONIUM CYCLOSILICATE 10GM/PACKET PO NR (15:35)
[2025-01-10 16:00] VITALS: BP 164/81; PULSE 69; RESP 20; TEMP 36.5; O2SAT 99
[2025-01-10 16:42] LABS: CLARITY URINE CLEAR (CLEAR); COLOR URINE YELLOW (YELLOW); GLUCOSE URINE 1+ (NEGATIVE); KETONES URINE NEGATIVE (NEGATIVE); LEUKOCYTE ESTERASE URINE NEGATIVE (NEGATIVE); NITRITE URINE NEGATIVE (NEGATIVE); OCCULT BLOOD URINE NEGATIVE (NEGATIVE); PH URINE 5.0 (4.5-8.0); PROTEIN URINE 2+ (NEGATIVE); SPECIFIC GRAVITY URINE 1.019 (1.005-1.030); UROBILINOGEN URINE 0.2 E.U./dL (0.2-1.0)
[2025-01-10 16:43] LABS: *AMPHETAMINES SCREEN URINE NEGATIVE (NEGATIVE); *BARBITURATES SCREEN URINE NEGATIVE (NEGATIVE); *BENZODIAZEPINES SCREEN URINE NEGATIVE (NEGATIVE); *COCAINE SCREEN URINE PRESUMPTIVE POSITIVE (NEGATIVE); CANNABINOID URINE SCREEN NEGATIVE (NEGATIVE); ECSTASY MDMA SCREEN URINE NEGATIVE (NEGATIVE); METHADONE URINE SCREEN NEGATIVE (NEGATIVE); OPIATES URINE SCREEN PRESUMPTIVE POSITIVE (NEGATIVE); PHENCYCLIDINE URINE SCREEN NEGATIVE (NEGATIVE)
[2025-01-10] MEDS: CALCIUM GLUCONATE 1GM PREMIX 50 ML IV NR (17:01)
[2025-01-10 17:08] LABS: BACTERIA URINE 2+; RBC URINE 0-2 /hpf (0-2); SQUAMOUS EPITHELIAL CELL URINE FEW /lpf (RARE/1+); WBC URINE 0-2 /hpf (0-2)
[2025-01-10 17:37] LABS: BASOPHILS % 0.9 % (0.0-2.0); EOSINOPHILS % 1.2 % (0.0-5.0); HEMATOCRIT. 33.3 % (36.0-48.0); HEMOGLOBIN. 10.0 g/dL (12.0-16.0); LYMPHOCYTES % 25.2 % (20.0-50.0); MEAN PLATELET VOLUME 8.5 fl (7.4-10.4); MONOCYTES % 10.4 % (2.0-8.0); NEUTROPHILS % 62.3 % (40.0-76.0); PLATELET 298 x1000/uL (130-400); RED BLOOD CELL COUNT 3.39 mill/uL (4.2-5.4); RED CELL DISTRIBUTION WIDTH 21.1 % (11.6-14.6)
[2025-01-10] MEDS: DEXTROSE 50% WATER 50ML SYRINGE IV PRN (17:54)
[2025-01-10 17:59] LABS: CREATININE 2.1 mg/dL (0.6-1.0)
[2025-01-10 18:00] LABS: UREA NITROGEN BLOOD 54 mg/dL (9-23)
[2025-01-10 18:02] LABS: PHOSPHORUS 4.5 mg/dL (2.5-4.9)
[2025-01-10] MEDS ORDERED: DEXTROSE 50% WATER 50ML SYRINGE IV PRN (18:30)
[2025-01-10] MEDS: HYDRALAZINE 20MG/ML VIAL IV NR (18:55)
[2025-01-10] MEDS: AMLODIPINE 5MG TABLET PO NR (18:55)
[2025-01-10 20:00] VITALS: BP 147/67; PULSE 72; RESP 18; TEMP 36.8; O2SAT 99
[2025-01-10] MEDS: AMLODIPINE 5MG TABLET PO SCH (21:01)
[2025-01-10] MEDS: ATORVASTATIN CALCIUM 40MG TABLET PO SCH (21:02)
[2025-01-10] MEDS: IPRATROPIUM/ALBUTEROL 0.5-3(2.5)MG/3ML NEB HHN SCH (21:30)
[2025-01-10 21:46] VITALS: PULSE 72; RESP 19; O2SAT 98
[2025-01-11] VITALS (8 sets, daily range): BP systolic 130–171; BP diastolic 59–84; PULSE 69–90; RESP 14–20; TEMP 35.7–36.7; O2SAT 96–100
[2025-01-11 07:48] LABS: BASOPHILS % 0.8 % (0.0-2.0); EOSINOPHILS % 1.9 % (0.0-5.0); HEMATOCRIT. 33.6 % (36.0-48.0); HEMOGLOBIN. 10.3 g/dL (12.0-16.0); LYMPHOCYTES % 15.0 % (20.0-50.0); MEAN PLATELET VOLUME 8.1 fl (7.4-10.4); MONOCYTES % 5.3 % (2.0-8.0); NEUTROPHILS % 77.0 % (40.0-76.0); PLATELET 301 x1000/uL (130-400); RED BLOOD CELL COUNT 3.54 mill/uL (4.2-5.4); RED CELL DISTRIBUTION WIDTH 21.3 % (11.6-14.6)
[2025-01-11 07:52] LABS: CREATININE 1.8 mg/dL (0.6-1.0)
[2025-01-11 07:53] LABS: CREATININE 1.8 mg/dL (0.6-1.0); UREA NITROGEN BLOOD 45.0 mg/dL (9-23); UREA NITROGEN BLOOD 47 mg/dL (9-23)
[2025-01-11 07:54] LABS: ASPARTATE AMINOTRANSFERASE 26 IU/L (<34)
[2025-01-11 07:55] LABS: BILIRUBIN TOTAL 0.4 mg/dL (0.1-1.0); PHOSPHORUS 3.8 mg/dL (2.5-4.9); PROTEIN TOTAL 6.8 g/dL (6.0-8.3)
[2025-01-11 08:07] LABS: TROPONIN I HIGH SENSITIVITY 612 ng/L (3.0-34)
[2025-01-11] MEDS: FUROSEMIDE 20MG/2ML VIAL IVP NR (09:57)
[2025-01-11 16:41] LABS: TOTAL VOLUME 24 HR 400 mL
[2025-01-12] VITALS: BP 125/59; PULSE 81; RESP 18; TEMP 36.5; O2SAT 99
[2025-01-12] MEDS ORDERED: FUROSEMIDE 40MG TABLET PO SCH (11:00)
[2025-01-12 11:50] VITALS: BP 130/71; PULSE 91; RESP 18; TEMP 97.8
[2025-01-12 12:00] VITALS: BP 176/72; PULSE 88; RESP 20; TEMP 36.5; O2SAT 97
[2025-01-12] MEDS ORDERED: HYDRALAZINE HCL 50MG TABLET PO SCH (14:00)
[2025-01-13 08:08] LABS: *CREATININE RANDOM URINE 76.6 mg/dL (Not Estab.); MICROALBUMIN RANDOM URINE 269.7 ug/mL (Not Estab.); MICROALBUMIN/CREATININE RATIO 352.0 mg/g creat (0-29)
[2025-01-13] MEDS ORDERED: AMLODIPINE 5MG TABLET PO SCH (09:00)
[2025-01-17] MEDS ORDERED: SULF1TAB44 PO (10:20)
== END 2025-01-12 13:15 | disposition home or self-care (01) | DRG 280 ==
LOC: ER 20:18 → 8WST 01-10 01:55 → EDBEDREQ 01-10 02:09 → EDBEDREQTM 01-10 02:09 → ENRESERV 01-10 06:33
PROVIDERS: ADMIT Hospitalist; ATTEND Hospitalist
DX: I13.0 Hypertensive heart and chronic kidney disease with heart failure and stage 1 through stage 4 chronic kidney disease, or unspecified chronic kidney disease (principal); I50.23 Acute on chronic systolic (congestive) heart failure; I21.4 Non-ST elevation (NSTEMI) myocardial infarction; J96.01 Acute respiratory failure with hypoxia; E87.20 Acidosis, unspecified; J44.1 Chronic obstructive pulmonary disease with (acute) exacerbation; N17.9 Acute kidney failure, unspecified; N18.32 Chronic kidney disease, stage 3b; E87.5 Hyperkalemia; D50.9 Iron deficiency anemia, unspecified; E83.51 Hypocalcemia; I16.0 Hypertensive urgency; E78.00 Pure hypercholesterolemia, unspecified; S50.812A Abrasion of left forearm, initial encounter; E16.2 Hypoglycemia, unspecified; I08.3 Combined rheumatic disorders of mitral, aortic and tricuspid valves; F14.10 Cocaine abuse, uncomplicated; Z99.81 Dependence on supplemental oxygen; Z82.49 Family history of ischemic heart disease and other diseases of the circulatory system; Z87.891 Personal history of nicotine dependence; Z90.711 Acquired absence of uterus with remaining cervical stump; Z79.899 Other long term (current) drug therapy; X58.XXXA Exposure to other specified factors, initial encounter; Y93.89 Activity, other specified; Y99.8 Other external cause status; Y92.89 Other specified places as the place of occurrence of the external cause
CPT/HCPCS: 36415; 71045; 76770; 80048; 80053; 80305; 81003; 82043; 82550; 82570; 82962; 83735; 83880; 84100; 84132; 84156; 84484; 85025; 93005; 94070; 94640; 94664; 94760; 96374; 96375; 98960; 99291; J0360; J0612; J1308; J1650; J1815; J1938; J2270; J2405; J3490